=== PATIENT | female | born 1930 | race Caucasian/White ===

== ENCOUNTER → 2016-11-24 | Outpatient (CLI) | payer MEDICARE, BC ==
[~2016-11-24] MED LIST: AMLODIPINE BESYL5 MG PO; ASPIRIN PO; BACTRIM DS TABL1 TA1 PO; CALCIUM 5001 TAB PO; CALCIUM500 MG PO; CALTRATE PLUS T1 TAB PO; CELEBREX PO; CENTRUM PO; CENTRUM SILVER PO; CENTRUM SILVER1 EAC1 PO; COMPAZINE10 MG PO; DIOVAN HCT; DIOVAN HCT 160-1 TAB PO; DIOVAN HCT 160/1 TAB PO; DIOVAN HCT 3201 EACH PO; DIOVAN PO; DIOVAN320 MG PO; DITROPAN PO; ESCITALOPRAM OX10 MG PO; HYDROCHLOROTHIA25 MG PO; LEXAPRO PO; LORTAB 7.5-5001 TAB PO; MEVACOR PO; OYSTER CALCIUM500 MG PO; PERCOCET5/325 PO; PHENERGAN25 MG; SIMVASTATIN40 MG PO; ZOCOR PO
--- NOTE | ~2016-11-24 | BD1 ---
[facility] A Service of [facility] RADIOLOGY TEXT RESULTS PATIENT: DEE BORJA LOCATION: [facility] : 30 UNIT #: [id number] AGE: [address]: Larry Cortes MD SEX: F ORDER DR: [id number] [address] [address] [id number] O MR#: [id number] Acc #: [id number] NAME: DEE BORJA : 1930 SEX: F STUDY DATE/TIME: 11/24/2016 11:23 UNIT: [facility] ROOM: STUDY DESCRIPTION: BD Dexa Bone Dens 1+ Site Attending Physician: Larry Cortes M.D. Referring Physician: Larry Cortes M.D. Ordering Physician: Larry Cortes M.D. Primary Care Physician: Larry Cortes M.D. MEDICAL IMAGING REPORT This report is preliminary unless electronic signature is present. EXAM DXA scan 11/24/2016 HISTORY Status post menopause with no hormone replacement therapy. Osteopenia. Rheumatoid arthritis. Hypertension with blood pressure medication. Bilateral hip replacements. FINDINGS Bone mineral density in the lumbar spine from L1-L4 is 1.424 g/cm2 which is 2 standard deviations above the mean when compared to the young adult reference population which is within the range of normal. This is 4.4 standard deviations above the mean when compared to the age-matched population. Bone mineral density in the distal left forearm radius is 0.744 g/cm2 which is 1.6 standard deviations below the mean when compared to the young adult reference population which is characteristic of osteopenia. This is 1.7 standard deviations above the mean when compared to the age-matched population. IMPRESSION Bone mineral density in the lumbar spine within the range of normal and within the left forearm characteristic of osteopenia. Dictated by... Amador Farmer M.D. THIS IS AN ELECTRONICALLY VERIFIED REPORT Amador Farmer M.D. at 11/25/2016 8:29 AM ABEL/winsome TD: 11/24/2016 14:01 [facility]. [facility] A Service of [facility] RADIOLOGY TEXT RESULTS PATIENT: DEE BORJA LOCATION: [facility] : [birth year] UNIT #: [id number] AGE: [address]: Larry Cortes MD SEX: F ORDER DR: PAUL #: [id number] MEDICAL IMAGING REPORT Page 1 of 1
== END | disposition home or self-care (01) ==
LOC: SRAD 11:12
DX: M06.9 Rheumatoid arthritis, unspecified (principal); Z78.0 Asymptomatic menopausal state
CPT/HCPCS: 77080